=== PATIENT | female | born 1975 | race Caucasian/White ===

== ENCOUNTER 2024-01-06 11:28 | Emergency (ER) | payer OTHER ==
[~2024-01-06] VITALS: Ht 157.5 cm; Wt 90.3 kg
[2024-01-06] MEDS: NS 1,000 ML IV SCH (11:49)
[2024-01-06] MEDS ORDERED: ISOVUE-370 76% 100ML VIAL As Ordered ONE (11:51)
[2024-01-06 11:59] LABS: VENOUS HCO3 18.6 MMOL/L (23.0-27.0); VENOUS O2 SATURATION 89.7 % (60.0-80.0); VENOUS PARTIAL PRESSURE CO2 30.8 mmHg (38.0-50.0); VENOUS PARTIAL PRESSURE O2 59.1 mmHg (30.0-50.0); VENOUS PH 7.398 UNITS (7.330-7.430); VENOUS STANDARD HCO3 20.2 MMOL/L; VENOUS TOTAL CO2 19.5 MMOL/L (24.0-28.0)
[2024-01-06 12:00] LABS: BASO % 0.2 % (0.0-1.0); EOS % 0.1 % (0.0-3.0); HEMOGLOBIN 13.2 g/dl (12.0-15.5); LYMPH # 1.4 10^3/uL (1.5-5.0); LYMPH % 12.9 % (24.0-44.0); MEAN CORPUSCULAR HEMOGLOBIN 32.8 pg (27.0-33.0); MEAN CORPUSCULAR HGB CONC 33.8 g/dl (32.0-36.5); MEAN CORPUSCULAR VOLUME 96.8 fl (80.0-96.0); MONO # 0.4 10^3/uL (0.0-0.8); MONO % 3.7 % (2.0-8.0); NEUTROPHILS % 82.3 % (36.0-66.0); PLATELET COUNT, AUTOMATED 244 10^3/uL (150-450); RED BLOOD COUNT 4.03 10^6/uL (4.00-5.40); WHITE BLOOD COUNT 10.9 10^3/uL (4.0-10.0)
[2024-01-06 12:21] LABS: ETHYL ALCOHOL (ETHANOL) < 0.003 % (0.000-0.010); LIPASE 33 U/L (12-53)
[2024-01-06 12:23] LABS: ALBUMIN 3.4 G/DL (3.2-5.2); ALKALINE PHOSPHATASE 108 U/L (46-116); ALT/SGPT 14 U/L (7.0-40); AMYLASE 57 U/L (30-118); AST/SGOT 18 U/L (<34); BILIRUBIN,DIRECT 0.2 MG/DL (<0.4); BILIRUBIN,TOTAL 0.7 MG/DL (0.3-1.2); BLOOD UREA NITROGEN 12 MG/DL (9-23); CALCIUM LEVEL 9.3 MG/DL (8.5-10.1); CARBON DIOXIDE LEVEL 20 MMOL/L (20-31); CHLORIDE LEVEL 103 MMOL/L (98-107); CK-MB VALUE MASS < 1.0 NG/ML (<3.6); CREATININE FOR GFR 0.82 MG/DL (0.55-1.30); GLOMERULAR FILTRATION RATE > 60.0 (>58); GLUCOSE, FASTING 116 MG/DL (60-100); POTASSIUM SERUM 3.7 MMOL/L (3.5-5.1); SODIUM LEVEL 134 MMOL/L (136-145)
[2024-01-06] MEDS: MORPHINE 4 MG/ML 1ML VIAL IV PRN (12:24)
[2024-01-06] MEDS: ONDANSETRON 4MG 2ML VIAL IV ONE (12:24)
[2024-01-06 12:25] LABS: CPK CREATINE PHOSPHOKINASE 78 U/L (34-145); MB/CK RELATIVE INDEX 1.28 (< OR =4)
[2024-01-06 12:35] LABS: INR 1.12; PARTIAL THROMBOPLASTIN TIME 22.8 SECONDS (24.8-34.2); PROTHROMBIN TIME 14.1 SECONDS (12.5-14.5)
[2024-01-06 12:41] LABS: HCG, SERUM QUALITATIVE NEGATIVE (NEGATIVE)
[2024-01-06] MEDS: levETIRAcetam INJection 1,000 MG in D5W 100 ML IV ONE (13:12)
[2024-01-06] MEDS: dexAMETHasone 20MG/5ML VIAL IV ONE (13:12)
[2024-01-06] MEDS: BOOSTRIX VACCINE (TETANUS/DIPHTH/ACEL. PERTUSSIS) 0.5ML SYR IM.IMMUN ONE (13:13)
[2024-01-06] MEDS ORDERED: HOME MED LIST COMPLETE! XX SCH (13:40)
[2024-01-06 15:38] VITALS: BP 119/55; TEMP 97.3; O2SAT 98
== END 2024-01-06 15:44 | disposition short-term general hospital (02) ==
LOC: M ED 11:28 → EDBD 11:28 → M ED 15:44
DX: S82.851A Displaced trimalleolar fracture of right lower leg, initial encounter for closed fracture (principal); S22.080A Wedge compression fracture of T11-T12 vertebra, initial encounter for closed fracture; D33.2 Benign neoplasm of brain, unspecified; Y92.9 Unspecified place or not applicable; Y93.9 Activity, unspecified; Y99.9 Unspecified external cause status; V48.5XXA Car driver injured in noncollision transport accident in traffic accident, initial encounter; F31.9 Bipolar disorder, unspecified; Z23 Encounter for immunization
CPT/HCPCS: 29515; 70470; 71045; 71260; 72125; 72128; 72131; 72190; 73564; 73600; 74177; 80047; 80048; 80076; 82077; 82150; 82550; 82553; 82803; 83605; 83690; 84484; 84703; 85025; 85610; 85730; 86850; 86900; 86901; 90471; 90715; 93005; 93041; 94760; 96361; 96374; 96375; 99291; 99292; G0390; J1100; J1953; J2405; Q9967